=== PATIENT | female | born 1965 | race African-American/Black ===

== ENCOUNTER 2024-03-06 09:48 | Outpatient (CLI) | payer OTHER, SELFPAY ==
[2024-03-30 11:50] VITALS: BMI 47.7
--- NOTE | 2024-03-30 11:50 | WPDHOMESLEEP ---
Sleep Study - Home Unattended Date of Study: 03/06/24 Ordering Provider: SHADI Dawkins Interpreting Provider: Estefani Pryor DO Home Sleep Study Type: Watch PAT Height: 1.65 m Weight: 130.181 kg Body Mass Index: 47.7 Neck Circumference (inches): 17.5 [place]: 16 Reason for Sleep Study Trouble falling and staying asleep Sleep History The patient is a 58-year-old female that had a sleep study ordered by the Pulmonary group for evaluation of sleep apnea. The patient admits to having difficulty falling and staying asleep. She denies snoring. She denies interruptions and breathing while asleep. She denies choking or gasping. She denies having trouble breathing on her back. She denies morning headaches. She denies having a dry or sore mouth/ throat in the morning. She denies nocturnal heartburn. She does have nocturia. She denies having difficulty falling back asleep if she wakes up throughout the night. She denies any hypnotic or sedative use. She denies feeling anxious about sleep. She does feel tired during the day. She does feel tired in the morning. She does have the urge to fall asleep during the day. She denies feeling drowsy while driving. She denies sleep paralysis, cataplexy and hypnagogic / hypnopompic hallucinations. She denies clenching or grinding her teeth. She denies kicking or jerking her legs excessively. She denies having a restless feeling in her legs. She goes to bed at midnight on work days and at 10:00 p.m. on her days off. It takes her 30 minutes to fall asleep more days and 1 hour on her days off. She typically gets 2 hours of sleep per night. Her sleep is not at all restorative on her days off. She denies taking any point naps. She denies dream enactment behavior. He denies sleep walking. She consumes 1-2 cups of caffeinated beverage per day. She denies tobacco and alcohol use. She denies exercising on a regular basis. [facility] Past Medical History Medical History Knee pain, left Hyperglycemia Essential hypertension Type 2 diabetes mellitus Surgical History Surgical History H/O total hysterectomy Social History Social History Smoking status: Never smoker Medications Home Medications ?Medication ?Instructions ?Recorded ?Confirmed ?Type dulaglutide 0.75 mg/0.5 mL 0.75 mg subcut WEEKLY 10/15/23 11/26/23 History subcutaneous pen injector (Trulicity) evolocumab 140 mg/mL subcutaneous 140 mg subcut .T0Rnhip 10/15/23 11/26/23 History pen injector (Repatha SureClick) glimepiride 2 mg tablet 2 mg PO DAILY 10/15/23 11/26/23 History losartan 100 mg tablet 100 mg PO DAILY 10/15/23 11/26/23 History metformin 1,000 mg tablet 1,000 mg PO BID 10/15/23 11/26/23 History furosemide 20 mg tablet 40 mg PO DAILY PRN 11/26/23 11/26/23 History Sleep Procedure The sleep study was completed using [employer] a technically adequate device with seven channels: peripheral arterial tone, actigraphy, body position, snore, respiratory movement, pulse oximetry, sleep staging, and heart rate. Prior to using the device, the patient received verbal and written instructions for its application and was provided with the help desk phone number for additional telephonic instruction with 24-hour availability of qualified personnel to answer questions. The study was scored using CMS guidelines. Sleep Architecture The total recording time is 6 hrs, 47 min. The total sleep time is 4 hrs, 59 min. Sleep latency is 48 minutes. REM latency is 52 minutes. The patient had 7 episodes of waking. Sleep architecture shows 20.2% deep sleep, 45.8% light sleep, and (as % Total Sleep Time) showed NREM (Light 45.8%; Deep 20.2%), and a 34.0% stage REM. The patient spent 100.0% of total sleep time in the supine position. Sleep efficiency was 73.46. Respiratory Analysis The overall AHI (pAHI 4%:) is 20.1. The central AHI is 0.2. The AHI was 6.7 in NREM and 46.8 in REM sleep. The AHI was 20.1 in Supine and N/A in Non-supine sleep. Percent of Lamine Anderson respirations is 0.0. Oximetry Data The oxygen desaturation index (ASIF 4%:) is 18.4. The mean saturation is 94%, and the lowest saturation is 77%. Time spent with saturation < 88% is 7.2 minutes. Snoring Profile Snoring average intensity is 42 dB. The patient snored above 45 decibels for 30.8 minutes, 10.3% of sleep time. Cardiac Profile The average pulse rate is 93 beats per minutes. The lowest pulse rate is 59 bpm. The highest pulse rate reported is 113 bpm. Atrial fibrillation was not detected. Premature beats occur <0.1 per minute. Assessment and Plan Assessment and Plan (1) ABHIJIT (obstructive sleep apnea): Code(s): G47.33 - Obstructive sleep apnea (adult) (pediatric) Status: Acute Assessment and Plan: The patient had an overall AHI of 20.1 with desaturation down to 77%. This is consistent with moderate sleep apnea. I recommend that the patient be prescribed AutoPAP 5-15 cm H2O, CPAP mask/filters/tubing and heated humidity. This should be used with all episodes of sleep.? Compliance should be reviewed within 31-90 days of starting therapy for usage greater than 4 hours per night greater than 70% of the nights. The patient should be asked about symptoms such as?excessive daytime sleepiness, quality of sleep, decreased nocturia, increased?mental functioning such as memory, mood, and concentration. Data The data obtained during this sleep study is adequate for interpretation. Certification This sleep study has been reviewed by a board certified sleep medicine physician.
== END 2024-03-07 15:01 | disposition home or self-care (01) ==
LOC: ANHCSM 09:50
PROVIDERS: Visit Provider Physician Assistant
DX: G47.33 Obstructive sleep apnea (adult) (pediatric) (principal); G47.10 Hypersomnia, unspecified
CPT/HCPCS: 95800

== ENCOUNTER 2024-03-06 10:18 | Outpatient (CLI) | payer OTHER, SELFPAY ==
--- NOTE | ~2024-03-06 | XR_ITS ---
EXAMINATION: XR chest 2V 03/06/2024 10:59 INDICATION: Cough for 4 months PROCEDURE: 2 view chest COMPARISON: No prior studies for comparison. FINDINGS: The lungs are clear. The cardiomediastinal silhouette is within normal limits. There are no pleural effusions. There is no pneumothorax suspected. IMPRESSION: 1: NO ACUTE CARDIOPULMONARY DISEASE. Reviewed, dictated and finalized at location B. [employer]
== END 2024-03-06 10:19 | disposition home or self-care (01) ==
PROVIDERS: PCP Internal Medicine Infectious Disease; Visit Provider Internal Medicine Infectious Disease
DX: R05.3 Chronic cough (principal)
CPT/HCPCS: 71046